=== PATIENT | male | born 1995 | race Caucasian/White ===

== ENCOUNTER 2018-06-27 18:42 | Emergency (ER) | payer MEDICAID ==
[~2018-06-27] VITALS: Ht 170.2 cm; Wt 69.0 kg
[2018-06-27 18:54] VITALS: BP 124/76
== END 2018-06-28 03:43 | disposition left against medical advice (07) ==
LOC: ER 18:42
DX: R07.89 Other chest pain (principal); Z53.21 Procedure and treatment not carried out due to patient leaving prior to being seen by health care provider
CPT/HCPCS: 93005